=== PATIENT | female | born 1955 | race Caucasian/White ===

== ENCOUNTER 2022-06-13 05:55 | Observation (INO) ==
[2022-06-13 06:13] LABS: Basophils # 0.1 K/mcL (0.0-0.2); Basophils % 1.2 %; Eosinophils # 0.4 K/mcL (0.0-0.6); Eosinophils % 4.8 %; Hematocrit 46.7 % (35.3-44.9); Hemoglobin 15.6 g/dL (11.5-15.4); Immature Granulocytes % 0.3 % (0-4); Lymphocytes # 2.8 K/mcL (0.6-4.6); Lymphocytes % 36.9 %; Mean Corpuscular HGB Conc 33.4 g/dL (31.6-35.5); Mean Corpuscular Volume 92.8 fL (83.0-100.0); Mean Platelet Volume 9.2 fL (9.4-12.4); Monocytes # 0.7 K/mcL (0.0-1.3); Monocytes % 9.1 %; Neutrophils # 3.7 K/mcL (1.6-8.9); Platelet Count 304 K/mcL (140-400); Red Blood Count 5.03 M/mcL (3.82-4.97); Segmented Neutrophils % 47.7 %; White Blood Count 7.7 K/mcL (4.3-11.1)
[2022-06-13 06:29] LABS: BUN/Creatinine Ratio 18 (6-26); Blood Urea Nitrogen 15 mg/dL (8-23); Calcium 9.5 mg/dL (8.6-10.3); Carbon Dioxide 27 mEq/L (23-29); Chloride 101 mEq/L (98-107); Glucose 105 mg/dL (70-105); Osmolality,Calculated 281 (280-300); Potassium 4.1 mEq/L (3.5-5.1); Sodium 135 mEq/L (136-145)
[2022-06-13 06:49] LABS: Influenza A PCR Negative (Negative); Influenza B PCR Negative (Negative); Resp. Syncytial Virus PCR Negative (Negative)
[2022-06-13 06:50] LABS: SARS-CoV-2 by PCR (In House) Negative (Negative)
[2022-06-13 07:04] LABS: Troponin I < 0.03 ng/mL (< 0.04)
[2022-06-13] MEDS ORDERED: Aspirin 81 MG TAB.CHEW PO ONE (07:38)
[2022-06-13] MEDS ORDERED: Ondansetron 4 MG/2 ML VIAL IVP PRN (08:16)
[2022-06-13] MEDS ORDERED: Naloxone 0.4 MG/ML INJ IVP PRN (08:16)
[2022-06-13] MEDS ORDERED: Acetaminophen 325 MG TABLET PO PRN (08:16)
[2022-06-13] MEDS ORDERED: methylPREDNISolone 125 MG/2 ML VIAL IVP ONE (08:23)
[2022-06-13] MEDS ORDERED: Pantoprazole 40 MG VIAL IVP ONE (08:23)
[2022-06-13] MEDS ORDERED: Nitroglycerin 0.4 MG TAB.SUBL SL PRN (08:24)
[2022-06-13] MEDS: Ipratropium/Albuterol Neb 3 ML IH PRN ×2 (08:31→20:32)
[2022-06-14] MEDS: Ipratropium/Albuterol Neb 3 ML IH PRN (05:42)
[2022-06-14 05:44] VITALS: O2SAT 93
[2022-06-14] MEDS ORDERED: Regadenoson 0.4 MG/5 ML SYRINGE IVP ONE (06:00)
[2022-06-14 06:21] LABS: Basophils % 0.3 %; Eosinophils % 0.4 %; Hematocrit 43.9 % (35.3-44.9); Hemoglobin 14.5 g/dL (11.5-15.4); Immature Granulocytes % 0.3 % (0-4); Lymphocytes # 3.1 K/mcL (0.6-4.6); Lymphocytes % 31.6 %; Mean Corpuscular Hemoglobin 30.9 pg (28.0-33.3); Mean Corpuscular Volume 93.4 fL (83.0-100.0); Mean Platelet Volume 9.9 fL (9.4-12.4); Monocytes % 9.8 %; Neutrophils # 5.6 K/mcL (1.6-8.9); Platelet Count 300 K/mcL (140-400); Red Cell Distribution Width 12.7 % (11.5-14.5); Segmented Neutrophils % 57.6 %; White Blood Count 9.8 K/mcL (4.3-11.1)
[2022-06-14 06:42] LABS: Calcium 9.2 mg/dL (8.6-10.3); Potassium 3.9 mEq/L (3.5-5.1)
[2022-06-14] MEDS ORDERED: *HR* Enoxaparin 40 MG/0.4 ML SYRINGE SQ SCH (07:00)
[2022-06-14] MEDS ORDERED: Valsartan 160 MG TABLET PO SCH (09:00)
[2022-06-14] MEDS ORDERED: Aspirin Enteric Coated 81 MG Tablet PO SCH (09:00)
[2022-06-14] MEDS ORDERED: Cholecalciferol (D-3) 1,000 UNIT (25MCG) TABLET PO SCH (09:00)
[2022-06-14] MEDS ORDERED: predniSONE 20 MG TABLET PO SCH (09:00)
[2022-06-14] MEDS ORDERED: hydroCHLOROthiazide 25 MG TABLET PO SCH (09:00)
[2022-06-14 11:27] VITALS: BP 178/74; PULSE 77; TEMP 97.9
[2022-06-15] MEDS ORDERED: HYDROCHLOROTHIAZIDE PO SCH (09:00)
[2022-06-15] MEDS ORDERED: [UNRECOGNIZED DRUG - OTHER] PO SCH (09:00)
[2022-06-15] MEDS ORDERED: VALSARTAN PO SCH (09:00)
== END 2022-06-14 12:46 | disposition home or self-care (01) ==
LOC: 3BNU 05:55 → EMEROOARM 05:55 → SUATTDRO 12:24 → 3BNU 13:03
PROVIDERS: ADMIT Pharmacist; ATTEND Nurse Practitioner